=== PATIENT | female | born 1940 | race Two or more races ===

== ENCOUNTER 2017-12-16 11:37 | Emergency (ER) | payer MEDICARE, MEDICAID ==
[~2017-12-16] VITALS: Ht 142.2 cm; Wt 52.3 kg
[2017-12-16 12:46] LABS: BASOPHILS # (AUTO) 0.02 x10^3/uL (0-0.1); BASOPHILS % (AUTO) 0 % (0-1); EOSINOPHILS # (AUTO) 0.03 x10^3/uL (0-0.4); EOSINOPHILS % (AUTO) 0 % (1-7); LYMPHOCYTES # (AUTO) 1.33 x10^3/uL (1-3.4); LYMPHOCYTES % (AUTO) 18 % (22-44); MD NO; MEAN CORPUSCULAR HEMOGLOBIN 29.1 pg (27.0-34.8); MEAN CORPUSCULAR HGB CONC 33.2 g/dL (32.4-35.8); MEAN CORPUSCULAR VOLUME 87.6 fL (80-100); MEAN PLATELET VOLUME 10.8 fL (7.4-10.4); MONOCYTES # (AUTO) 0.37 x10^3/uL (0.2-0.8); MONOCYTES % (AUTO) 5 % (2-9); NEUTROPHILS # (AUTO) 5.76 x10^3/uL (1.8-6.8); NEUTROPHILS % (AUTO) 77 % (42-75); PLATELET COUNT 230 x10^3/uL (130-400); RED BLOOD COUNT 4.56 x10^6/uL (3.82-5.3); RED CELL DISTRIBUTION WIDTH 14.9 % (9.6-15.2)
[2017-12-16 13:01] LABS: ANION GAP 10 mmol/L (5-15); CALCIUM 10.2 mg/dL (8.5-10.1); CHLORIDE 103 mmol/L (98-107)
[2017-12-16 13:05] LABS: ALANINE AMINOTRANSFERASE 29 U/L (12-78); ALKALINE PHOSPHATASE 84 U/L (45-117); BILIRUBIN,TOTAL 0.5 mg/dL (0.2-1.0); CREATININE 1.21 mg/dL (0.55-1.02); TOTAL PROTEIN 7.9 g/dL (6.4-8.2)
[2017-12-16 13:42] LABS: MICROSCOPIC INDICATED
[2017-12-16 13:43] LABS: CULTURE INDICATED? YES
[2017-12-16 16:14] VITALS: BP 132/72
== END 2017-12-16 19:39 | disposition home or self-care (01) ==
LOC: EDBD → MERGE 11:37 → ED 19:05
DX: S09.93XA Unspecified injury of face, initial encounter (principal); W01.0XXA Fall on same level from slipping, tripping and stumbling without subsequent striking against object, initial encounter; Y93.89 Activity, other specified; Y92.89 Other specified places as the place of occurrence of the external cause; Y99.8 Other external cause status; E11.9 Type 2 diabetes mellitus without complications; R41.82 Altered mental status, unspecified
CPT/HCPCS: 36415; 70450; 80053; 81001; 85025; 87086; 93005; 99285

== ENCOUNTER → 2018-02-13 | Outpatient (CLI) | payer MEDICARE, MEDICAID | END | disposition home or self-care (01) | LOC: CFH 09:34 | PROVIDERS: ATTEND Nurse Practitioner Family | DX: J32.9 Chronic sinusitis, unspecified (principal); E11.9 Type 2 diabetes mellitus without complications; Z86.73 Personal history of transient ischemic attack (TIA), and cerebral infarction without residual deficits | CPT/HCPCS: 70551 ==

== ENCOUNTER 2018-03-13 21:13 | Emergency (ER) | payer MEDICARE, MEDICAID ==
[~2018-03-13] VITALS: Ht 147.3 cm; Wt 44.0 kg
[2018-03-13] MEDS ORDERED: ATOR20TA9 PO (21:33)
[2018-03-13] MEDS ORDERED: LOSA25TA6 PO (21:33)
[2018-03-13] MEDS ORDERED: ALEN70TA5 PO (21:33)
[2018-03-13] MEDS ORDERED: METF500T27 PO (21:33)
[2018-03-13] MEDS ORDERED: ONDANSETRON ODT 4 MG ONE (21:40)
[2018-03-13] MEDS ORDERED: MORPHINE SULFATE 4 MG/ML, 1ML ONE (21:41)
[2018-03-13] MEDS ORDERED: MORPHINE SULFATE 4 MG/ML, 1ML IVPush ONE (22:00)
[2018-03-13] MEDS ORDERED: ONDANSETRON ODT 4 MG PO ONE (22:00)
[2018-03-13 23:15] VITALS: BP 164/84
[2018-03-15] MEDS ORDERED: TRAM50TA2 PO (20:27)
[2018-03-16] MEDS ORDERED: ONDA4TAB10 PO (09:07)
== END 2018-03-13 23:16 | disposition home or self-care (01) ==
LOC: ED 23:05
DX: S42.001A Fracture of unspecified part of right clavicle, initial encounter for closed fracture (principal); W07.XXXA Fall from chair, initial encounter; Y93.89 Activity, other specified; Y92.009 Unspecified place in unspecified non-institutional (private) residence as the place of occurrence of the external cause; Y99.8 Other external cause status; E11.9 Type 2 diabetes mellitus without complications
CPT/HCPCS: 29105; 73010; 73030; 93005; 96374; 99284; Q0162

== ENCOUNTER 2018-09-26 15:13 | Emergency (ER) | payer MEDICARE, MEDICAID ==
[~2018-09-26] VITALS: Ht 177.8 cm; Wt 37.0 kg
[~2018-09-26 15:13] MED LIST: ALEN70TA6 PO; ATOR20TA37 PO; LOSA25TA25 PO; METF500T27 PO; ONDA4TAB10 PO; TRAM50TA2 PO
[2018-09-26 15:27] VITALS: BP 171/94
--- NOTE | 2018-09-26 16:14 | NUR ---
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
[2018-09-26 16:48] LABS: BASOPHILS # (AUTO) 0.02 x10^3/uL (0-0.1); BASOPHILS % (AUTO) 0 % (0-1); EOSINOPHILS # (AUTO) 0.01 x10^3/uL (0-0.4); EOSINOPHILS % (AUTO) 0 % (1-7); LYMPHOCYTES # (AUTO) 1.13 x10^3/uL (1-3.4); LYMPHOCYTES % (AUTO) 14 % (22-44); MD NO; MEAN CORPUSCULAR HEMOGLOBIN 28.1 pg (27.0-34.8); MEAN CORPUSCULAR HGB CONC 32.4 g/dL (32.4-35.8); MEAN CORPUSCULAR VOLUME 86.8 fL (80-100); MEAN PLATELET VOLUME 11.3 fL (7.4-10.4); MONOCYTES # (AUTO) 0.37 x10^3/uL (0.2-0.8); MONOCYTES % (AUTO) 5 % (2-9); NEUTROPHILS # (AUTO) 6.64 x10^3/uL (1.8-6.8); NEUTROPHILS % (AUTO) 81 % (42-75); PLATELET COUNT 207 x10^3/uL (130-400); RED BLOOD COUNT 4.75 x10^6/uL (3.82-5.3); RED CELL DISTRIBUTION WIDTH 15.1 % (9.6-15.2)
[2018-09-26 16:56] LABS: ANION GAP 9 mmol/L (5-15); CALCIUM 9.4 mg/dL (8.5-10.1); CHLORIDE 105 mmol/L (98-107); CREATININE 0.89 mg/dL (0.55-1.02)
[2018-09-26 17:02] LABS: MICROSCOPIC NOT IND
[2018-09-26 17:09] LABS: CULTURE INDICATED? NO
--- NOTE | 2018-09-26 18:30 | NUR ---
DISCHARGED PATIENT TO DAUGHTER AND SON-IN-LAW.
--- NOTE | 2018-09-26 18:30 | NUR ---
Patient/Caregiver given discharge instructions and they have confirmed that they understand the instructions. Patient ambulatory with steady gait.
== END 2018-09-26 18:32 | disposition home or self-care (01) ==
LOC: ED 18:31
DX: F03.90 Unspecified dementia, unspecified severity, without behavioral disturbance, psychotic disturbance, mood disturbance, and anxiety (principal)
CPT/HCPCS: 36415; 80048; 81003; 85025; 99283

== ENCOUNTER 2018-12-14 16:28 | Emergency (ER) | payer MEDICARE, MEDICAID ==
[~2018-12-14] VITALS: Ht 149.9 cm; Wt 55.0 kg
[2018-12-14 16:32] VITALS: BP 141/79
--- NOTE | 2018-12-14 16:42 | NUR ---
PT PRESENTS TO ED WITH LAW ENFORCEMENT AND EMS. PER EMS/LAW ENFORCEMENT, PT WAS FOUND WANDERING IN STACIES CASINO, PT IS A&O ONLY TO SELF. PT'S ONLY COMPLAINT IS BILATERAL LE PAIN. PER EMS, PT AMBULATORY ON SCENE, GAIT SLOW. 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 PT IS VERY PLEASANT AND COOPERATIVE. PT ATTACHED TO BP AND SPO2 MONTIORS. BED LOCKED AND IN LOWEST POSITION, CALL LIGHT IN REACH, PT INSTRUCTED TO REMAIN IN BED AND CALL FOR STAFF ASSIST BEFORE GETTING OUT OF BED.
--- NOTE | 2018-12-14 16:49 | NUR ---
legal hold was placed by [employer] captain airline pilot for failure to care for self, sitter requested from special agent in charge as pt is a fall risk, flight risk and confused. tech at bedside for EKG at this time.
--- NOTE | 2018-12-14 17:03 | NUR ---
report given to primary RN Maycol.
--- NOTE | 2018-12-14 17:05 | NUR ---
REPORT FROM ADI RODRIGUEZ.
[2018-12-14 17:06] LABS: BASOPHILS # (AUTO) 0.02 x10^3/uL (0-0.1); BASOPHILS % (AUTO) 0 % (0-1); EOSINOPHILS % (AUTO) 0 % (1-7); LYMPHOCYTES # (AUTO) 0.94 x10^3/uL (1-3.4); LYMPHOCYTES % (AUTO) 14 % (22-44); MD NO; MEAN CORPUSCULAR HEMOGLOBIN 28.3 pg (27.0-34.8); MEAN CORPUSCULAR VOLUME 88.5 fL (80-100); MEAN PLATELET VOLUME 10.1 fL (7.4-10.4); MONOCYTES # (AUTO) 0.32 x10^3/uL (0.2-0.8); MONOCYTES % (AUTO) 5 % (2-9); NEUTROPHILS # (AUTO) 5.58 x10^3/uL (1.8-6.8); NEUTROPHILS % (AUTO) 81 % (42-75); PLATELET COUNT 227 x10^3/uL (130-400); RED BLOOD COUNT 4.51 x10^6/uL (3.82-5.3); RED CELL DISTRIBUTION WIDTH 15.6 % (9.6-15.2)
[2018-12-14 17:18] LABS: ANION GAP 7 mmol/L (5-15); CHLORIDE 108 mmol/L (98-107); CREATININE 0.98 mg/dL (0.55-1.02)
[2018-12-14 17:21] LABS: SALICYLATE LEVEL < 1.7 mg/dL (2.8-20.0)
[2018-12-14 17:26] LABS: ALANINE AMINOTRANSFERASE 26 U/L (12-78); ALKALINE PHOSPHATASE 73 U/L (45-117); BILIRUBIN,TOTAL 0.3 mg/dL (0.2-1.0); TOTAL PROTEIN 7.6 g/dL (6.4-8.2)
--- NOTE | 2018-12-14 17:41 | NUR ---
FAMILY AT BEDSIDE. ERMD AWARE.
--- NOTE | 2018-12-14 18:08 | NUR ---
FAMILY STATES PATIENT IS AT HER BASELINE. ERMD AWARE.
--- NOTE | 2018-12-14 18:50 | NUR ---
PT TAKEN OFF LEGAL 1999. FAMILY GIVEN D/C PAPERWORK. FAMILY VERBALIZED UNDERSTANDING. PT WALKED OF DEPARTMENT WITH FAMILY WITH STEADY GAIT. NAD NOTED AT TIME OF D/C.
== END 2018-12-14 18:52 | disposition home or self-care (01) ==
LOC: EDBD 16:28 → MERGE 16:28 → ED 17:57
DX: G30.8 Other Alzheimer's disease (principal); R41.82 Altered mental status, unspecified
CPT/HCPCS: 36415; 80053; 80307; 85025; 93005; 99284

== ENCOUNTER 2019-02-01 17:35 | Outpatient (CLI) | payer MEDICARE, MEDICAID | END 2019-02-01 23:59 | disposition home or self-care (01) | LOC: RAD 17:35 | PROVIDERS: ATTEND Physician Assistant Surgical | DX: Z02.9 Encounter for administrative examinations, unspecified (principal) ==

== ENCOUNTER 2019-02-11 14:57 | Outpatient (CLI) | payer MEDICARE, MEDICAID | END 2019-02-11 23:59 | disposition home or self-care (01) | LOC: RAD 14:57 | PROVIDERS: ATTEND Physician Assistant Surgical | DX: M25.551 Pain in right hip (principal); M47.816 Spondylosis without myelopathy or radiculopathy, lumbar region; R60.9 Edema, unspecified ==

== ENCOUNTER 2019-08-16 16:45 | Inpatient (IN) | payer MEDICAID, MEDICARE ==
[~2019-08-16] VITALS: Ht 144.8 cm; Wt 50.4 kg
--- NOTE | 2019-08-16 17:50 | NUR ---
THIS IS AN 79 YO FEMALE WHO PRESENTS TO THE ER WITH HER DAUGHTERS WHO ARE HER CARETAKERS. PER DAUGHTERS, PT HAS BEEN INCREASINGLY RESTLESS AND CONFUSED SINCE YESTERDAY. PT HAS HX OF DEMENTIA AND IS USUALLY ONLY CONSITENTLY ORIENTED TO SELF. PT KNOWS NAME BUT NOT BIRTHDAY, PER DAUGHTERS THIS SEEMS NORMAL. PT AO X SELF. PT RESTLESS ON GURNEY. ABD NONTENDER TO PLAP. UA CATH SAMPLE OBTAINED AND SENT TO LAB. PT ON CONT BP, CARDIAC AND O2 MONITORS. CALL LIGHT WITHIN REACH. WILL CONT TO MONITOR PT.
[2019-08-16 18:12] LABS: CULTURE INDICATED? YES; MICROSCOPIC INDICATED
[2019-08-16] MEDS ORDERED: SODIUM CHLORIDE 0.9% 1,000ML IVBOLUS ONE ×2 (18:30→19:30)
[2019-08-16] MEDS ORDERED: SODIUM CHLORIDE FLUSH 10ML SYR IVF ONE (18:30)
[2019-08-16] MEDS ORDERED: ACETAMINOPHEN 325 MG TABLET PO ONE (18:30)
[2019-08-16 18:40] LABS: BASOPHILS # (AUTO) 0.01 x10^3/uL (0-0.1); BASOPHILS % (AUTO) 0 % (0-1); EOSINOPHILS % (AUTO) 0 % (1-7); LYMPHOCYTES # (AUTO) 0.52 x10^3/uL (1-3.4); LYMPHOCYTES % (AUTO) 5 % (22-44); MD NO; MEAN CORPUSCULAR HGB CONC 33.2 g/dL (32.4-35.8); MEAN CORPUSCULAR VOLUME 87.3 fL (80-100); MEAN PLATELET VOLUME 10.2 fL (7.4-10.4); MONOCYTES # (AUTO) 1.08 x10^3/uL (0.2-0.8); MONOCYTES % (AUTO) 10 % (2-9); NEUTROPHILS # (AUTO) 9.14 x10^3/uL (1.8-6.8); NEUTROPHILS % (AUTO) 85 % (42-75); PLATELET COUNT 209 x10^3/uL (130-400); RED BLOOD COUNT 3.75 x10^6/uL (3.82-5.3); RED CELL DISTRIBUTION WIDTH 15.4 % (9.6-15.2)
--- NOTE | 2019-08-16 18:51 | NUR ---
PT UP TO RESTROOM WITH BOTH DAUGHTERS. PT APPEARS STEADY WITH STANDBY ASSIST. PT AND DAUGHTERS AWARE WE ARE WAITING FOR LAB RESUTLS. WILL CONT TO MONITOR PT.
[2019-08-16 18:55] LABS: ALANINE AMINOTRANSFERASE 11 U/L (12-78); ALBUMIN 3.2 g/dL (3.4-5.0); ANION GAP 9 mmol/L (5-15); CALCIUM 9.5 mg/dL (8.5-10.1); CHLORIDE 104 mmol/L (98-107)
[2019-08-16 18:58] LABS: ALKALINE PHOSPHATASE 93 U/L (45-117); BILIRUBIN,TOTAL 0.5 mg/dL (0.2-1.0); TOTAL PROTEIN 7.4 g/dL (6.4-8.2)
[2019-08-16] MEDS ORDERED: ACETAMINOPHEN 325 MG TABLET ONE (18:58)
[2019-08-16] MEDS ORDERED: CEFTRIAXONE PMX 1GM/50ML 50 ML IVPB ONE (19:30)
--- NOTE | 2019-08-16 19:35 | NUR ---
PT MEDICATED ORDERED. PT CONT TO BE AO X SELF, WHICH PER DAUGHTERS APPEARS TO BE PT'S BASELINE. PT RESTLESS BUT SOMEWHAT COOPERATIVE AT THIS TIME. PT ON CONT BP, CARDIAC AND O2 MONITORS. CALL LIGHT WITHIN REACH. WILL CONT TO MONITOR PT.
--- NOTE | 2019-08-16 19:45 | NUR ---
RN DISCUSSED POSSIBILTY OF SEPSIS WITH EDGARD SMITH. PER EDGARD SMITH, HE DOES NOT CONSIDER THIS PT MEETING SIRS CIRTERIA RIGHT NOW. BLOOD CULTURES HAVE ALREADY BEEN DRAWN.
[2019-08-16] MEDS ORDERED: CEFTRIAXONE PMX 1GM/50ML 50 ML ONE (19:47)
[2019-08-16] MEDS ORDERED: SODIUM CHLORIDE 0.9% 1,000 ML IV ONE (20:09)
[2019-08-16] MEDS ORDERED: SODIUM CHLORIDE FLUSH 10ML SYR IVF PRN (20:30)
--- NOTE | 2019-08-16 20:51 | NUR ---
PT CURRENTLY DOZING ON GURJERSON. NAD NOTED. SKIN PWD. RESP EVEN AND UNLABORED. PT AO X 1, WHICH PER DAUGHTERS IS BASELINE. PT ON CONT BP, CARDIAC AND O2 MONITORS. CALL LIGHT WITHIN REACH. WILL CONT TO MONITOR PT.
--- NOTE | 2019-08-16 21:15 | NUR ---
REPORT TO ADI DE LA GARZA ON MED/SURG.
[2019-08-16 22:05] VITALS: BP 103/57
[2019-08-16] MEDS ORDERED: PIOG15TA66 PO (22:48)
[2019-08-16] MEDS ORDERED: DIVA125C3 PO (22:48)
[2019-08-16] MEDS ORDERED: LINA5TAB PO (22:48)
[2019-08-16] MEDS ORDERED: ACETAMINOPHEN 325 MG TABLET PO PRN (23:30)
[2019-08-16] MEDS ORDERED: LIDODERM 5% PATCH TD PRN (23:30)
[2019-08-16] MEDS ORDERED: ONDANSETRON ODT 4 MG PO PRN (23:30)
[2019-08-16] MEDS ORDERED: DOCUSATE 100 MG CAPSULE PO PRN (23:30)
[2019-08-16] MEDS: ENOXAPARIN 40 MG/0.4 ML SQ SCH (23:48)
[2019-08-16] MEDS: LACTATED RINGERS 1,000 ML IV SCH (23:48)
[2019-08-17 00:51] VITALS: BP 122/71
[2019-08-17 05:26] LABS: BASOPHILS % (AUTO) 0 % (0-1); EOSINOPHILS % (AUTO) 0 % (1-7); LYMPHOCYTES # (AUTO) 0.36 x10^3/uL (1-3.4); LYMPHOCYTES % (AUTO) 4 % (22-44); MD NO; MEAN CORPUSCULAR HEMOGLOBIN 29.3 pg (27.0-34.8); MEAN CORPUSCULAR HGB CONC 33.3 g/dL (32.4-35.8); MEAN CORPUSCULAR VOLUME 88.1 fL (80-100); MEAN PLATELET VOLUME 10.4 fL (7.4-10.4); MONOCYTES # (AUTO) 0.61 x10^3/uL (0.2-0.8); MONOCYTES % (AUTO) 7 % (2-9); NEUTROPHILS # (AUTO) 7.77 x10^3/uL (1.8-6.8); NEUTROPHILS % (AUTO) 89 % (42-75); PLATELET COUNT 183 x10^3/uL (130-400); RED BLOOD COUNT 3.41 x10^6/uL (3.82-5.3); RED CELL DISTRIBUTION WIDTH 15.3 % (9.6-15.2)
[2019-08-17 05:31] LABS: ANION GAP 7 mmol/L (5-15); CALCIUM 8.5 mg/dL (8.5-10.1); CHLORIDE 109 mmol/L (98-107); CREATININE 0.74 mg/dL (0.55-1.02)
[2019-08-17] MEDS: LACTATED RINGERS 1,000 ML IV SCH (07:30)
[2019-08-17 08:31] VITALS: BP 90/40
[2019-08-17] MEDS: LOSARTAN 100 MG TAB PO SCH (09:00)
[2019-08-17] MEDS: LINAGLIPTIN 5 MG TAB PO SCH (09:55)
[2019-08-17] MEDS: DIVALPROEX 125 MG CAP.SPRINK PO SCH (09:55)
[2019-08-17] MEDS: PIOGLITAZONE 15 MG TABLET PO SCH (09:55)
[2019-08-17] MEDS: metFORMIN XR 500 MG TAB.ER.24H PO SCH ×2 (09:55→20:38)
[2019-08-17 10:30] VITALS: BP 107/56
[2019-08-17] MEDS ORDERED: CEFTRIAXONE PMX 1GM/50ML 50 ML IV SCH ×2 (10:30→13:00)
[2019-08-17] MEDS: NS + 20MEQ KCL 1,000 ML IV SCH (12:30)
[2019-08-17] MEDS ORDERED: POTASSIUM CHLORIDE 20 MEQ TAB.ER.PRT PO ONE (12:30)
[2019-08-17] MEDS ORDERED: PHARMACY INSTRUCTION MC PRN (12:30)
[2019-08-17] MEDS ORDERED: INSTRUCTION SEE COMMENTS XX PRN (12:30)
[2019-08-17] MEDS: CEFTAZIDIME 1,000 MG in SODIUM CHLORIDE 0.9% 50 ML IVPB SCH (13:00)
[2019-08-17 14:34] VITALS: BP 120/65
[2019-08-17 19:24] VITALS: BP 131/75
[2019-08-17] MEDS: QUETIAPINE 25MG TABLET PO PRN (20:10)
[2019-08-17] MEDS: MELATONIN 3 MG TABLET PO SCH (20:38)
[2019-08-18] MEDS: NS + 20MEQ KCL 1,000 ML IV SCH ×2 (01:35→08:34)
[2019-08-18] MEDS: CEFTAZIDIME 1,000 MG in SODIUM CHLORIDE 0.9% 50 ML IVPB SCH ×2 (01:35→13:21)
[2019-08-18 07:33] VITALS: BP 136/67
[2019-08-18 07:51] LABS: ANION GAP 7 mmol/L (5-15); CALCIUM 7.8 mg/dL (8.5-10.1); CHLORIDE 115 mmol/L (98-107); CREATININE 0.63 mg/dL (0.55-1.02)
[2019-08-18 08:17] LABS: BASOPHILS % (AUTO) 0 % (0-1); EOSINOPHILS # (AUTO) 0.02 x10^3/uL (0-0.4); EOSINOPHILS % (AUTO) 0 % (1-7); LYMPHOCYTES % (AUTO) 9 % (22-44); MD NO; MEAN CORPUSCULAR HEMOGLOBIN 28.9 pg (27.0-34.8); MEAN CORPUSCULAR HGB CONC 32.6 g/dL (32.4-35.8); MEAN CORPUSCULAR VOLUME 88.8 fL (80-100); MEAN PLATELET VOLUME 10.2 fL (7.4-10.4); MONOCYTES # (AUTO) 0.42 x10^3/uL (0.2-0.8); MONOCYTES % (AUTO) 7 % (2-9); NEUTROPHILS % (AUTO) 84 % (42-75); PLATELET COUNT 181 x10^3/uL (130-400); RED BLOOD COUNT 3.53 x10^6/uL (3.82-5.3); RED CELL DISTRIBUTION WIDTH 15.9 % (9.6-15.2)
[2019-08-18] MEDS: LINAGLIPTIN 5 MG TAB PO SCH (08:44)
[2019-08-18] MEDS: QUETIAPINE 25MG TABLET PO PRN ×2 (08:44→20:16)
[2019-08-18] MEDS: PIOGLITAZONE 15 MG TABLET PO SCH (08:44)
[2019-08-18] MEDS: metFORMIN XR 500 MG TAB.ER.24H PO SCH ×2 (08:44→21:00)
[2019-08-18] MEDS: DIVALPROEX 125 MG CAP.SPRINK PO SCH (08:44)
[2019-08-18] MEDS: ENOXAPARIN 40 MG/0.4 ML SQ SCH ×2 (08:45→08:58)
[2019-08-18] MEDS: LOSARTAN 100 MG TAB PO SCH (08:53)
[2019-08-18 13:16] VITALS: BP_SYST 97
[2019-08-18] MEDS ORDERED: HALOPERIDOL 5 MG/ML ONE (13:55)
[2019-08-18] MEDS ORDERED: HALOPERIDOL 5 MG/ML IM PRN (14:00)
[2019-08-18] MEDS: LACTATED RINGERS 1,000 ML IV SCH (16:09)
[2019-08-18] MEDS: MELATONIN 3 MG TABLET PO SCH (21:00)
[2019-08-19 06:32] LABS: BASOPHILS # (AUTO) 0.01 x10^3/uL (0-0.1); BASOPHILS % (AUTO) 0 % (0-1); EOSINOPHILS # (AUTO) 0.01 x10^3/uL (0-0.4); EOSINOPHILS % (AUTO) 0 % (1-7); LYMPHOCYTES # (AUTO) 0.51 x10^3/uL (1-3.4); LYMPHOCYTES % (AUTO) 12 % (22-44); MD NO; MEAN CORPUSCULAR HEMOGLOBIN 28.7 pg (27.0-34.8); MEAN CORPUSCULAR HGB CONC 32.8 g/dL (32.4-35.8); MEAN CORPUSCULAR VOLUME 87.7 fL (80-100); MEAN PLATELET VOLUME 9.8 fL (7.4-10.4); MONOCYTES # (AUTO) 0.41 x10^3/uL (0.2-0.8); MONOCYTES % (AUTO) 10 % (2-9); NEUTROPHILS # (AUTO) 3.34 x10^3/uL (1.8-6.8); NEUTROPHILS % (AUTO) 78 % (42-75); PLATELET COUNT 204 x10^3/uL (130-400); RED BLOOD COUNT 3.52 x10^6/uL (3.82-5.3); RED CELL DISTRIBUTION WIDTH 14.9 % (9.6-15.2)
[2019-08-19 06:46] LABS: ANION GAP 8 mmol/L (5-15); CALCIUM 8.1 mg/dL (8.5-10.1); CHLORIDE 109 mmol/L (98-107)
[2019-08-19 06:47] LABS: CREATININE 0.66 mg/dL (0.55-1.02)
[2019-08-19] MEDS: POTASSIUM CHLORIDE 20 MEQ TAB.ER.PRT PO SCH ×2 (08:00→17:00)
[2019-08-19 08:55] VITALS: BP 120/57
[2019-08-19] MEDS: metFORMIN XR 500 MG TAB.ER.24H PO SCH ×3 (09:00→19:47)
[2019-08-19] MEDS: LINAGLIPTIN 5 MG TAB PO SCH ×2 (09:00→10:23)
[2019-08-19] MEDS: ENOXAPARIN 40 MG/0.4 ML SQ SCH (09:00)
[2019-08-19] MEDS: DIVALPROEX 125 MG CAP.SPRINK PO SCH ×2 (09:00→10:23)
[2019-08-19] MEDS: LOSARTAN 100 MG TAB PO SCH ×2 (09:00→10:23)
[2019-08-19] MEDS: PIOGLITAZONE 15 MG TABLET PO SCH ×2 (09:00→10:23)
[2019-08-19] MEDS ORDERED: POTASSIUM CHLORIDE 40 MEQ in SODIUM CHLORIDE 0.9% 500 ML IV ONE (09:30)
[2019-08-19] MEDS: LACTATED RINGERS 1,000 ML IV SCH ×2 (09:51→21:00)
[2019-08-19] MEDS: CEFTRIAXONE PMX 2GM/50ML 50 ML IV SCH ×2 (09:51→16:00)
[2019-08-19 19:00] VITALS: BP 130/51
[2019-08-19] MEDS: MELATONIN 3 MG TABLET PO SCH (19:43)
[2019-08-20 06:23] LABS: ANION GAP 10 mmol/L (5-15); CALCIUM 7.6 mg/dL (8.5-10.1); CHLORIDE 110 mmol/L (98-107); CREATININE 0.65 mg/dL (0.55-1.02)
[2019-08-20] MEDS: POTASSIUM CHLORIDE 20 MEQ TAB.ER.PRT PO SCH ×2 (08:00→08:06)
[2019-08-20] MEDS: metFORMIN XR 500 MG TAB.ER.24H PO SCH ×4 (08:06→20:33)
[2019-08-20] MEDS: LINAGLIPTIN 5 MG TAB PO SCH (08:06)
[2019-08-20] MEDS: PIOGLITAZONE 15 MG TABLET PO SCH (08:07)
[2019-08-20] MEDS: ENOXAPARIN 40 MG/0.4 ML SQ SCH (08:07)
[2019-08-20] MEDS: DIVALPROEX 125 MG CAP.SPRINK PO SCH ×3 (08:07→09:46)
[2019-08-20] MEDS: LOSARTAN 100 MG TAB PO SCH ×3 (08:07→09:46)
[2019-08-20] MEDS: QUETIAPINE 25MG TABLET PO PRN (09:48)
[2019-08-20 13:00] VITALS: BP 147/73
[2019-08-20] MEDS: CEFTRIAXONE PMX 2GM/50ML 50 ML IV SCH (15:58)
[2019-08-20] MEDS: MELATONIN 3 MG TABLET PO SCH (20:33)
[2019-08-21 07:27] VITALS: BP 153/72
[2019-08-21] MEDS: metFORMIN XR 500 MG TAB.ER.24H PO SCH (07:47)
[2019-08-21] MEDS ORDERED: CEFD125S3 PO ×2 (08:48)
[2019-08-21] MEDS: LOSARTAN 100 MG TAB PO SCH ×2 (09:31→09:38)
[2019-08-21] MEDS: ENOXAPARIN 40 MG/0.4 ML SQ SCH (09:31)
[2019-08-21] MEDS: DIVALPROEX 125 MG CAP.SPRINK PO SCH ×2 (09:31→09:38)
[2019-08-21] MEDS ORDERED: CEFD250S26 PO (11:52)
[2019-08-21] MEDS: CEFTRIAXONE PMX 2GM/50ML 50 ML IV SCH (12:32)
[2019-08-21 12:40] VITALS: BP 141/63
== END 2019-08-21 15:23 | disposition home or self-care (01) | DRG 871 ==
LOC: ED 19:01 → EDIP 20:09 → 3N 21:38 → DCLOUNGE 08-21 14:57
PROVIDERS: ADMIT Family Medicine; ATTEND Family Medicine
PROC: 0T9B70Z Drainage of Bladder with Drainage Device, Via Natural or Artificial Opening (ICD-10-PCS; principal; 2019-08-16)
DX: A41.51 Sepsis due to Escherichia coli [E. coli] (principal); G93.41 Metabolic encephalopathy; E87.2 Acidosis; N30.00 Acute cystitis without hematuria; E11.649 Type 2 diabetes mellitus with hypoglycemia without coma; F02.80 Dementia in other diseases classified elsewhere, unspecified severity, without behavioral disturbance, psychotic disturbance, mood disturbance, and anxiety; G30.1 Alzheimer's disease with late onset; I10 Essential (primary) hypertension; M81.0 Age-related osteoporosis without current pathological fracture; Z79.84 Long term (current) use of oral hypoglycemic drugs; B96.20 Unspecified Escherichia coli [E. coli] as the cause of diseases classified elsewhere
CPT/HCPCS: 36415; 71045; 80048; 80053; 81001; 82962; 83036; 83605; 84145; 85025; 87040; 87077; 87086; 87186; 96365; G0378; J0696; J0713; J1650; J3480; J1630; J7030; J7040; J7120